=== PATIENT | male | born 1945 | race Caucasian/White ===

== ENCOUNTER 2019-08-31 05:40 | Outpatient (RCR) | payer MEDICARE, SELFPAY | END 2019-09-25 00:01 | LOC: ONCMED 05:40 | PROVIDERS: Family Provider Nurse Practitioner Family; Visit Provider Internal Medicine Medical Oncology | DX: C20 Malignant neoplasm of rectum (principal); C77.2 Secondary and unspecified malignant neoplasm of intra-abdominal lymph nodes; Z23 Encounter for immunization; I10 Essential (primary) hypertension; J44.9 Chronic obstructive pulmonary disease, unspecified; L40.9 Psoriasis, unspecified; K74.60 Unspecified cirrhosis of liver; J98.11 Atelectasis; Z79.899 Other long term (current) drug therapy; Z93.3 Colostomy status; Z85.828 Personal history of other malignant neoplasm of skin; Z87.891 Personal history of nicotine dependence; R91.1 Solitary pulmonary nodule | CPT/HCPCS: 71260; 80053; 82378; 83540; 83550; 85025; 90732; 99214; G0009; Q9967 ==

== ENCOUNTER 2019-10-13 06:18 | Outpatient (RCR) | payer MEDICARE, SELFPAY | END 2019-10-26 00:01 | LOC: ONCMED 06:18 | PROVIDERS: Family Provider Nurse Practitioner Family; Visit Provider Radiology Radiation Oncology | DX: C34.2 Malignant neoplasm of middle lobe, bronchus or lung (principal); C20 Malignant neoplasm of rectum; C77.2 Secondary and unspecified malignant neoplasm of intra-abdominal lymph nodes; I26.99 Other pulmonary embolism without acute cor pulmonale; Z90.49 Acquired absence of other specified parts of digestive tract; Z93.3 Colostomy status; Z92.3 Personal history of irradiation; Z92.21 Personal history of antineoplastic chemotherapy | CPT/HCPCS: 99215 ==